=== PATIENT | male | born 1950 | race Caucasian/White ===

== ENCOUNTER 2019-02-22 18:43 | Emergency (ER) | payer OTHER, BC, SELFPAY ==
[2019-02-22 18:45] VITALS: BP 137/85; PULSE 74; RESP 16; TEMP 36.7; O2SAT 96; BMI 31.4
--- NOTE | 2019-02-22 18:55 | ED.RN ---
brian randhawa (distribution operations supervisor) 1st call [phone] 2nd call [phone] 3rd call [phone]
--- NOTE | 2019-02-22 18:58 | ED.DCSUM_ITS ---
History of Present Illness Chief Complaint: Burn Informant: Patient Onset: Days Current Severity: Mild Maximum Severity: Mild Narrative: Patient presents with a burn to his right taylor that he suffered 5 days ago at work. He states a hot part leaned up against his leg. He had a small round burn to the anterior taylor which developed a blister later that night. Blister drained that same day. Area has not been painful. Today he has erythema extending distally from the open the blister. He has had no fever or chills. Past Medical History - Allergies and Home Meds Allergies/Adverse Reactions: Allergies barium iodide Adverse Reaction (Verified 02/22/19 18:49) Nausea/Vom/Diarrhea Primary Care Physician: [facility] Doctor,Out of [Primary Care Provider] - Prior records reviewed: Yes Past Medical History: - - Reviewed Lives: Spouse/ Significant Other Smoking Status: Never smoker Review of Systems General: Denies: Chills, Fever Eyes: Denies: Visual changes - bilaterally ENT: Denies: Bilateral ear pain Cardiovascular: Denies: Chest pain Respiratory: Denies: Dyspnea Gastrointestinal: Denies: Abdominal pain Musculoskeletal: Reports: Arthralgias, Extremity Pain Skin: Reports: Wounds Neurological: Denies: Headache Hematologic: Denies: Easy bruising, Easy bleeding Allergy: Denies: Uticaria Physical Exam Vital Signs/Narrative: Vital Signs Temp Pulse Resp BP Pulse Ox 02/22/19 18:45 98.0 F 74 16 137/85 H 96 Inital Vital Signs reviewed: Yes General: Well nourished, Well developed Head: Normocephalic ENT: Moist mucous membranes Neck: Supple Cardiovascular: Regular rate, Regular rhythm, No murmurs Respiratory: No distress, CTA bilaterally Abdomen: Soft, Nontender Extremities: Edema - 2+ edema bilateral lower extremities. Skin: - - Patient has a 1 x 3 cm fibrinous scab over previous blistered wound. He has an area of erythema and warmth consistent with cellulitis extending around and distal to the initial wound measuring 6 x 11 cm. Neurological: Alert, Oriented x3, Normal Strength, Normal Sensation Psychological: Normal affect Diagnostic/Tx/Re-eval - Medical Decision Making Will be cleansed and dressed. Area of cellulitis will be outlined with surgical marker. Patient be started on Bactrim and Keflex, first doses given here. ED Disposition - Plan for ED Patient: Disposition: Home or Assisted Living Diagnosis: Thermal burn, Cellulitis Instructions: BURN, Thermal, (1'2'3') w/ Dressing, BURN, Infected Prescriptions: Smz/Tmp Ds [Bactrim Ds] 1 tablet PO BID #20 tablet Cephalexin [Keflex] 500 mg PO Q6 #40 capsule Referrals: [facility] [GROUP OF PHYSICIANS] - 3-5 Days
[2019-02-22] MEDS: Smz/Tmp Ds Tablet 1 TABLET PO (19:05)
[2019-02-22] MEDS: Cephalexin 250 MG Capsule 500 MG PO (19:05)
[2019-02-22 19:10] VITALS: TEMP 36.7
[2019-02-22 20:22] VITALS: BP 135/82; PULSE 72; RESP 17; TEMP 36.7; O2SAT 97
== END 2019-02-22 20:23 | disposition home or self-care (01) ==
PROVIDERS: Emergency Provider Emergency Medicine
DX: L03.115 Cellulitis of right lower limb (principal); T24.001A Burn of unspecified degree of unspecified site of right lower limb, except ankle and foot, initial encounter; X19.XXXA Contact with other heat and hot substances, initial encounter; Y93.89 Activity, other specified; Y92.89 Other specified places as the place of occurrence of the external cause; Y99.0 Civilian activity done for income or pay
CPT/HCPCS: 99282

== ENCOUNTER → 2019-08-01 09:45 | Outpatient (CLI) | payer BC, SELFPAY ==
--- NOTE | 2019-08-01 09:49 | CT_ITS ---
STUDY: CT CHEST WITHOUT CONTRAST REASON FOR EXAM: Male, 69 years old. LUNG NODULE RADIATION DOSAGE (If Supplied By Facility): CTDIvol = ( 13.85 ) mGy, DLP = ( 553.77 ) mGycm TECHNIQUE: Transaxial imaging was performed without the administration of intravenous contrast material. Multiplanar coronal and sagittal images were reformatted. Individualized dose optimization techniques were used for this CT. COMPARISON: None. FINDINGS: Small bilateral benign appearing axillary lymph nodes. There is a 5.1 mm noncalcified nodule in the posterior aspect of the right upper lobe abutting the right minor fissure as seen on axial image #51. Adjacent to this, there is a similar appearing nodule measuring 4.4 mm abutting the fissure. This also evidence of a similar appearing 3 mm nodule in the posterior aspect of the right upper lobe abutting the right minor fissure. Mild degree of pleural thickening at the right lung base with the increased markings suggestive of scarring. Focal erosive scarring is seen in the lateral posterior aspect of the right upper lobe. There are calcifications of the coronary arteries. There are multiple small lymph nodes within the mediastinum, which are normal in size and morphology most compatible with reactive lymph hyperplasia. Normal hilar regions. Normal unenhanced pulmonary arteries. Normal aorta arch and descending thoracic aorta. There are multi-level degenerative changes of the thoracic spine. There is no demonstrated abnormality of the visualized upper abdomen. CT/Chest without Contrast IMPRESSION: 3 subcentimeters nodules are seen in the posterior aspect of the right upper lobe as described. These nodules abut the right minor fissure. Mild scarring at the right lung base as well as at the right lung apex. Electronically Signed: Mian Klein, at 11:10 EDT , Service support ,
== END ==
PROVIDERS: PCP Student in an Organized Health Care Education/Training Program; Referring Provider Internal Medicine Pulmonary Disease; Visit Provider Internal Medicine Pulmonary Disease
DX: R91.8 Other nonspecific abnormal finding of lung field (principal)
CPT/HCPCS: 71250

== ENCOUNTER 2019-08-01 10:00 | Day surgery (SDC) | payer BC, SELFPAY ==
[2019-08-01] VITALS (7 sets, daily range): BP systolic 120–132; BP diastolic 76–96; PULSE 65–71; RESP 16; TEMP 36.3–36.6; O2SAT 94–100; BMI 30.2
[2019-08-01] MEDS: Lactated Ringers 1,000 ML 100 ML IV (10:26)
--- NOTE | 2019-08-01 10:52 | PCM.OPRPT ---
Report of Operation Date of Procedure: 08/01/19 Pre-Operative Diagnosis: Right knee arthrofibrosis Post-Operative Diagnosis: Right knee arthrofibrosis Surgery/Procedure Performed:: Manipulation under anesthesia right total knee Description of Surgical Findings:: Pre-manipulation range of motion 25-65 Postmanipulation range of motion 10-105 search optimization analyst: None Type of Anesthesia:: MAC Anesthesiologist: Frank Bradley Special Medications: None Specimen's removed: None Estimated Blood Loss (mL): 0 Fluids Replaced: None Description of Procedure: Brief history operative indications: 69-year-old male who had total knee replacement by my partner 9 weeks ago presented with arthrofibrosis. Manipulation under anesthesia was recommended. Risks and benefits were discussed including fracture, continued stiffness and the risks of anesthesia. Procedure: On the date of procedure patient's right lower extremity is marked in the preoperative area. They were brought back to the operating room where they were left on her gurney. Anesthesia was administered and anesthesia assumed control her C-spine airway and remaining control throughout the main procedure. Once patient was comfortably asleep the preoperative range of motion was measured at 25-65?. Gentle pressure was placed on the knee with the hip in flexion scar tissue was broken up and the knee was flexed 5-1 05?. Patient tolerated the procedure well was awakened by anesthesia and transferred back to recovery. Patient will receive a block in the PACU and will be placed on a Medrol Dosepak to take as directed. Postoperative plan: They gamal start a prednisone Dosepak tomorrow. They will have physical therapy every day for 2 weeks and follow-up in 2 weeks. Montelukast will be written for 6 weeks. - Complications No intraoperative complications - Admit VTE Documentation VTE Present on Admission: No VTE Mechan Device Prophylaxis: None VTE Pharm Prophylaxis ordered?: Yes
== END 2019-08-01 12:40 | disposition home or self-care (01) ==
LOC: SDC 10:01 → AC 10:03
PROVIDERS: PCP Student in an Organized Health Care Education/Training Program; Referring Provider Specialist; Visit Provider Specialist
PROC: (CPT 27570; principal; 2019-08-01 13:10)
DX: M24.661 Ankylosis, right knee (principal); Z86.718 Personal history of other venous thrombosis and embolism; Z79.01 Long term (current) use of anticoagulants; G47.30 Sleep apnea, unspecified; M17.11 Unilateral primary osteoarthritis, right knee; Z96.651 Presence of right artificial knee joint
CPT/HCPCS: 27570; 64447; J7120

== ENCOUNTER → 2019-12-08 07:28 | Outpatient (CLI) | payer MEDICARE, BC, SELFPAY ==
[2019-08-01 10:17] VITALS: BMI 30.2
--- NOTE | 2019-12-08 07:35 | CT_ITS ---
STUDY: CT CHEST WITHOUT CONTRAST REASON FOR EXAM: Male, 69 years old. NODULE F/U, NO OTHER MED HX RADIATION DOSAGE (If Supplied By Facility): CTDIvol = ( 14.15 ) mGy, DLP = ( 572.93 ) mGycm TECHNIQUE: Transaxial imaging was performed without the administration of intravenous contrast material. Multiplanar coronal and sagittal images were reformatted. Individualized dose optimization techniques were used for this CT. COMPARISON: Comparison is made with prior study from 08/01/2019. FINDINGS: Small benign-appearing bilateral axillary lymph nodes. The previously seen subcentimeters nodule seen in the posterior aspect of the right upper lobe abutting the right minor fissure have almost completely resolved. These measures approximately 1 mm at this time. Stable mild scarring at the right base with focal pleural thickening. There is no demonstrated pleural abnormality. There are calcifications of the coronary arteries. There are multiple small lymph nodes within the mediastinum, which are normal in size and morphology most compatible with reactive lymph hyperplasia. The largest is in the precarinal space and measures 2 cm. This is unchanged. Normal hilar regions. Normal unenhanced pulmonary arteries. Normal aorta arch and descending thoracic aorta. There are multi-level degenerative changes of the thoracic spine. There is no demonstrated abnormality of the visualized upper abdomen. CT/Chest without Contrast IMPRESSION: Interval almost complete resolution of the previously seen tiny nodules in the posterior aspect of the right upper lobe abutting the right minor fissure. Electronically Signed: Mian Klein, at 9:33 EDT , Service support ,
== END ==
PROVIDERS: PCP Student in an Organized Health Care Education/Training Program; Referring Provider Internal Medicine Pulmonary Disease; Visit Provider Internal Medicine Pulmonary Disease
DX: R91.1 Solitary pulmonary nodule (principal)
CPT/HCPCS: 71250

== ENCOUNTER → 2020-06-08 06:50 | Outpatient (CLI) | payer MEDICARE, SELFPAY ==
[2019-08-01 10:17] VITALS: BMI 30.2
--- NOTE | 2020-06-08 06:58 | CT_ITS ---
STUDY: CT ABDOMEN AND PELVIS WITH AND WITHOUT CONTRAST REASON FOR EXAM: Male, 69 years old. MICROSCOPIC HEMATURIA, NO HX KS, SKURG-APPY,TERE RADIATION DOSAGE (If Supplied By Facility): CTDIvol = ( 23.96 ) mGy, DLP = ( 3375.21 ) mGycm TECHNIQUE: Transaxial images were obtained from the dome of the diaphragm to the symphysis pubis without oral contrast. IV 100mL Isovue-300 was administered. Sagittal and coronal images were reconstructed. Individualized dose optimization techniques were used for this CT. COMPARISON: None. FINDINGS: Minimal degree of increased markings at the right base suggestive of either atelectasis and/or scarring. The visualized portions of the heart are within normal limits. There is decreased attenuation of the liver consistent with steatosis. There are surgical clips in the gallbladder fossa consistent with a prior cholecystectomy. Normal spleen. Normal pancreas. Normal bilateral adrenal glands. There is a 2.4 cm cyst in the anterior lateral aspect of the right upper pole. There is also evidence of a 1.3 cm hyperdense cyst in the midpole of the right kidney. There is 1.4 cm cyst in the upper pole of the left kidney. 2 small cysts are also seen in the lower pole of the left kidney. There is a small hiatal hernia. Normal small intestine. There are multiple colonic diverticula consistent with diverticulosis. The patient is status post appendectomy. There is diffuse atherosclerotic calcification of the abdominal aorta, without a demonstrated aneurysm. Normal inferior vena cava. There is borderline retroperitoneal lymphadenopathy with enlarged nodes no greater than 10mm in the short axis diameter. Normal urinary bladder. There are prostatic calcifications. Small umbilical hernia containing nondilated bowel. There are bilateral inguinal hernias containing fat more prominent on the right side. There are mild degenerative changes of the visualized lumbar spine. CT/CT Abd/Pelvis W/WO Contrast IMPRESSION: Multiple bilateral renal cysts. Prostatic calcification. Fatty infiltration of the liver. Findings suggestive of atelectasis and/or scarring at the right lung base. Electronically Signed: Mian Klein MD at 8:20 EST , Service support ,
[2020-06-08 07:21] LABS: CREATININE FINGERSTICK 1.3 mg/dL (0.70-1.30)
== END ==
PROVIDERS: PCP Student in an Organized Health Care Education/Training Program; Referring Provider Nurse Practitioner Adult Health; Visit Provider Nurse Practitioner Adult Health
DX: R31.21 Asymptomatic microscopic hematuria (principal)
CPT/HCPCS: 74178; Q9967

== ENCOUNTER 2021-01-08 09:11 | Inpatient (IN) | payer MEDICARE, SELFPAY ==
[2021-01-08] VITALS (10 sets, daily range): BP systolic 98–106; BP diastolic 69–80; PULSE 49–90; RESP 16–18; TEMP 36.7–37.4; O2SAT 94–95; BMI 30.7
--- NOTE | 2021-01-08 09:14 | HP.PCM.HOS_ITS ---
HPI - General General Date of Admission: 01/08/21 Date of Service: 01/08/21 Chief Complaint: Shortness of breath, New A. fib with RVR HPI Narrative JAG TOVAR, is a 70 M who presents from also ED with newly diagnosed COVID-19 infection and A. fib with RVR. Patient stated that he started having fever chills with progressive shortness of breath ongoing for 6 days prior to admission. His had Covid first and he also got it. He has not been vaccinated. He was diagnosed the same day his symptoms started. He went to the emergency department because he was progressively short of breath. On the time of being seen, he stated that he feels improved. He denied any fever or chills or dizziness. [facility] Medical History (Updated 01/08/21 @ 14:[address] Graciela Juarez MD) Cholecystectomy planned Home Medications aspirin 81 mg PO DAILY 01/08/21 [History Last Taken Unknown] Allergy/AdvReac Type Severity Reaction Status Date / Time barium iodide AdvReac Nausea/Vom/ Verified 02/22/19 18:49 Diarrhea Family History (Updated 01/08/21 @ 14:[address] Graciela Juarez MD) Mother Diabetes Father Heart disease Surgical History (Updated 01/08/21 @ 14:[address] Graciela Juarez MD) H/O hernia repair H/O total knee replacement History of appendectomy Social History (Updated 01/08/21 @ 14:[address] Graciela Juarez MD) household members: spouse current gender identity: male Smoking Status: Never smoker alcohol intake: current alcohol intake frequency: holidays/special occasions only substance use type: does not use ROS ROS Narrative Constitutional: Reports: Malaise, Weakness, Fatigue, Chills, Fever,. Denies: Anorexia, Night Sweats, Weight Change Eyes: Denies: Blurred vision, Cataracts, Conjunctivae Inflammation, Pain, Redness, Vision Change HEENT: Denies: Difficulty Hearing, Difficulty Swallowing, Head Aches, Hearing Changes, Sinus Congestion, Sinus Drainage Cardiovascular: Denies: Chest Pain, Orthopnea, Palpitations Respiratory:Admits to: Cough, Shortness of breath at rest, Denies:Sputum production Gastrointestinal: Denies: Abdominal Pain, Nausea, Vomiting Genitourinary: Denies: Dysuria Musculoskeletal: Denies: Joint Pain, Joint stiffness, Joint swelling, Joint Tenderness Skin: Denies: Rash, Wounds Neurological: Denies: Numbness, Tingling, Focal weakness Vital Signs Vital Signs Vital Signs: Blood pressure is 104/76, pulse rate 60, pulse ox 94, temperature 98.4 F, on 1 L of oxygen Physical Exam Narrative Physical exam: General: Alert, Oriented x3, Cooperative, No apparent distress, Well developed, on oxygen HEENT: Atraumatic Oral: Moist Mucosa Neck: Supple Lungs: Diminished Cardiovascular: HS I+II, regular, no murmurs Abdomen: Bowel Sounds Present, Soft, Non Tender Extremities: No edema Results 1. Acute hypoxic insufficiency secondary to acute COVID-19 pneumonia Patient presents from [place] ED on 2 L of oxygen Diagnosed 6 days ago. Started on remdesivir in [place] ED-got 1st dose Will continue on Decadron, remdesivir, breathing treatments, 2. Newly diagnosed A. fib, rate controlled, no history of A. fib, rate controlled Likely secondary to #1 Will continue on Lovenox, will hold off on beta-john on account of relative hypotension 3. DVT prophylaxis?on Lovenox therapeutic dosing I discussed and explained in details the various types of CODE STATUS-full code, DNR CCA, DNR CC. Patient chose to be full code Time spent discussing CODE STATUS 17 minutes Charges/Coding Visit Charges Inpatient E&M: 36577 Init Hosp L3 Procedures Hospitalists Procedures: 53746 Advncd Care Plan 30 Min
--- NOTE | 2021-01-08 10:30 | CASEMGMT ---
RN JOSEFINA called patient in room for initial transition planning/care coordination assessment. TONYA ROCHA introduced self and role at [facility]. Patient is alert and oriented. Patient willing to participate in assessment and is able to answer all questions appropriately. Care providers, pharmacy, and demographics verified. Patient wishes to discharge home, denies need for home health at this time, will monitor for home oxygen. Patient states he has no further needs or concerns at this time. CM to follow for discharge planning needs that may arise. PCP: Emily Specialists: none Preferred Pharmacy: [facility] Insurance: [employer] [facility] Prescription Benefit: yes Living Will/HPOA: yes, daughter Tiburcio Hampton LNOK: , daughter Living Arrangements: Patient lives with in a single story home wiht 2 steps to enter. Patient states he is independent at home. is sick with covid as well and hospitalized at [facility]. Transportation: self. DME/HHC: Patient states he has shower chair, cane, walker, wheelchair, grab bars, and cpap at home. Patient denies previous HHC. No preference for DME and agreeable to [employer] after review list. Patient had covid testing done at [facility]. Disposition Plan: Patient to discharge home with family support and follow-up plans in place. Monitor for home oxygen. Suzan GARCIA, RN, CM
--- NOTE | 2021-01-08 11:10 | PCS.PANDOC ---
PANDEMIC DOCUMENTATION INITIATED: Date: 12/20/2020 Time: 190
[2021-01-08] MEDS: Enoxaparin 120 MG/0.8 ML Syringe 110 MG SC ×2 (12:01→16:42)
[2021-01-08 13:37] LABS: BNP,B-Type NATRIURETIC PEPTIDE 379.6 pg/mL (0-100)
[2021-01-09] VITALS (9 sets, daily range): BP systolic 94–104; BP diastolic 68–71; PULSE 38–90; RESP 16–18; TEMP 36.5–37.4; O2SAT 93–96
--- NOTE | 2021-01-09 03:36 | EKG12_ITS ---
Test Reason : BRADYCARDIA Blood Pressure : / mmHG Vent. Rate : 043 BPM Atrial Rate : 038 BPM P-R Int : 000 ms QRS Dur : 078 ms QT Int : 452 ms P-R-T Axes : 000 -06 011 degrees QTc Int : 381 ms Atrial fibrillation Abnormal ECG Confirmed by KYRA LIRIANO, DARIAN ([id number]), manuscript editor ALEKSANDR HUGHES ([id number]) on 01/12/2021 9:32:51 AM Referred By: LIEN Confirmed By:DARIAN RAE MD
[2021-01-09] MEDS: Enoxaparin 120 MG/0.8 ML Syringe 110 MG SC ×2 (07:01→15:35)
[2021-01-09 07:37] LABS: Absolute Lymphocyte Count 2.54 X10^3/uL (0.83-4.51); Absolute Neutrophil Count 4.3 X10^3/uL (2.0-7.7); Basophil# 0.02 X10^3/uL; Basophil% 0.3 % (0-1); Eosinophil# 0.01 X10^3/uL; Eosinophils% 0.1 % (0-5); Hematocrit 45.2 % (40-54); Lymphocyte # 2.54 X10^3/ul (0.83-4.51); Lymphocyte % 32.9 % (19-41); Mean Corp Hgb Conc 33.2 g/dL (32-36); Mean Corpuscular Hgb 28.5 pg (27.0-32.0); Mean Corpuscular Volume 85.8 fL (80-94); Mean Platelet Vol. 11.4 fl (6.2-12.0); Monocyte# 0.86 X10^3/uL; Monocyte% 11.1 % (0-10); NRBC Flagged by Analyzer 0 % (0-5); Neutrophil # 4.26 X10^3/uL (2.7-7.7); Neutrophil % 55.1 % (47-70); Platelet Count 187 K/mm3 (150-450); RBC Distribution Width CV 13.1 % (11.6-14.6); RBC Distribution Width SD 40.9 fl (35.1-43.9); Red Blood Count 5.27 M/mm3 (4.6-6.2); White Blood Count 7.7 K/mm3 (4.4-11.0)
[2021-01-09 08:03] LABS: ALB/GLOB Ratio 0.6 RATIO (0.9-2.4); AST(SGOT) 31 U/L (15-37); Alanine Aminotransfer ALT/SGPT 39 U/L (16-61); Albumin, Serum 2.5 g/dL (3.2-5.0); Alkaline Phosphatase 56 U/L (45-117); Anion Gap 4 (5-15); BUN 21 mg/dL (7-18); BUN/Creat Ratio 21.1 RATIO (10-20); Calcium,Total 8.4 mg/dL (8.5-10.1); Chloride 107 mmol/L (98-107); EST Glomerular Filtration Rate 79 mL/min (>60); Est Glom Filt Rate - Afr Amer 96 mL/min (>60); Globulin 3.9 g/dL (2.2-4.2); Glucose 109 mg/dL (74-106); Magnesium 2.2 mg/dL (1.6-2.6); Potassium 3.7 mmol/L (3.5-5.1); Protein, Total 6.4 g/dL (6.4-8.2); Sodium Level 138 mmol/L (136-145)
[2021-01-09] MEDS: dexAMETHasone 4 MG Tablet 6 MG PO (09:48)
--- NOTE | 2021-01-09 15:02 | CON.PCM.CA_ITS ---
Assessment & Plan Assessment/Plan (1) Atrial fibrillation: QUALIFIERS: Atrial fibrillation type: unspecified Qualified Code(s): I48.91 - Unspecified atrial fibrillation PLAN: Patient's heart rate is controlled. No episodes of persistent symptomatic bradycardia that would require pacemaker placement. 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 No AV mal blocking or antiarrhythmic medications required at this time. HPI Consult Data Date of Consult: 01/09/21 HPI Narrative Reason for Consultation: Atrial fibrillation HPI Narrative: 70-year-old male admitted with Covid and hypoxemia. We were cons ulted for atrial fibrillation. Patient was not seen personally by me. Cardiology consult was provided based on EKG, telemetry findings, review of chart and discussion with Dr. Juarez. Telemetry reveals some episodes of prolonged R-R interval up to 2.8 seconds but no persistent bradycardia. Underlying rhythm is atrial fibrillation [facility] Medical History (Updated 01/09/21 @ 15:[address] Isaías Sharma MD) Cholecystectomy planned Home Medications apixaban [Eliquis] 5 mg PO BID 30 Days #60 tab 01/09/21 [Rx Last Taken Unknown] dexamethasone 6 mg PO DAILY 8 Days #12 tab 01/09/21 [Rx Last Taken Unknown] Allergy/AdvReac Type Severity Reaction Status Date / Time barium iodide AdvReac Nausea/Vom/ Verified 02/22/19 18:49 Diarrhea Family History (Updated 01/08/21 @ 14:[address] Graciela Juarez MD) Mother Diabetes Father Heart disease Surgical History (Updated 01/08/21 @ 14:[address] Graciela Juarez MD) H/O hernia repair H/O total knee replacement History of appendectomy Social History (Updated 01/08/21 @ 14:[address] Graciela Juarez MD) household members: spouse current gender identity: male Smoking Status: Never smoker alcohol intake: current alcohol intake frequency: holidays/special occasions only substance use type: does not use Objective Data Vital Signs: Vital Signs Temp Pulse Resp BP Pulse Ox 99.4 F H 69 18 100/68 95 01/09/21 13:17 01/09/21 13:17 01/09/21 13:17 01/09/21 13:17 01/09/21 14:11 Oxygen Flow Rate (L/min) 93 Oxygen Delivery Method Room Air Weight: 246 lb Body Mass Index (BMI) 30.7 Intake & Output: Intake and Output for Last 24 Hours 01/07/21 01/08/21 01/09/21 23:59 23:59 23:59 Intake Total 900 / 900 650 / 650 Balance 900 / 900 650 / 650 Lab / Micro Data Result Diagrams: 01/09/21 07:21 01/09/21 07:21 Labs: Laboratory Results - last 24 hr 01/08/21 12:55: D-Dimer Quant (PE/DVT) 2.30 H* 01/09/21 07:21: WBC 7.7, RBC 5.27, Hgb 15.0, Hct 45.2, MCV 85.8, MCH 28.5, MCHC 33.2, RDW Std Deviation 40.9, RDW Coeff of Heidy 13.1, Plt Count 187, MPV 11.4, Immature Gran % (Auto) 0.500, Neut % (Auto) 55.1, Lymph % (Auto) 32.9, [place] % (Auto) 11.1 H, Eos % (Auto) 0.1, Baso % (Auto) 0.3, Absolute Neuts (auto) 4.3, Absolute Lymphs (auto) 2.54, Nucleated RBC % 0 01/09/21 07:21: Sodium 138, Potassium 3.7, Chloride 107, Carbon Dioxide 27.0, Anion Gap 4 L, BUN 21 H, Creatinine 1.00, Estim Creat Clear Calc 84.50, Est GFR (MDRD) Af Amer 96, Est GFR (MDRD) Non-Af 79, BUN/Creatinine Ratio 21.1 H, Glucos e 109 H, Calcium 8.4 L, Magnesium 2.2, Total Bilirubin 0.80, AST 31, ALT 39, Alkaline Phosphatase 56, Total Protein 6.4, Albumin 2.5 L, Globulin 3.9, Albumin/Globulin Ratio 0.6 L Micro: Microbiology 01/08/21 13:29 Mucosa - Nasopharyngeal Respiratory Panel (PCR) - Final 01/08/21 16:45 Urine, Clean Catch Legionella Antigen - Final 01/08/21 16:45 Urine, Clean Catch Streptococcus pneumoniae Antigen (M - Final Cardiology Labs/Tests 01/08/21 12:55: D-Dimer Quant (PE/DVT) 2.30 H* 01/09/21 07:21: WBC 7.7, RBC 5.27, Hgb 15.0, Hct 45.2, MCV 85.8, MCH 28.5, MCHC 33.2, Plt Count 187, MPV 11.4, Immature Gran % (Auto) 0.500, Neut % (Auto) 55.1, Lymph % (Auto) 32.9, [place] % (Auto) 11.1 H, Eos % (Auto) 0.1, Baso % (Auto) 0.3, Absolute Neuts (auto) 4.3, Nucleated RBC % 0 01/09/21 07:21: Sodium 138, Potassium 3.7, Chloride 107, Carbon Dioxide 27.0, Anion Gap 4 L, BUN 21 H, Creatinine 1.00, Est GFR (MDRD) Af Amer 96, Est GFR (MDRD) Non-Af 79, BUN/Creatinine Ratio 21.1 H, Glucose 109 H, Calcium 8.4 L, Magnesium 2.2, Total Bilirubin 0.80 Rhythm: EKG: ECHO: Stress Test: Cardiac Cath: PCI: CT Surgery: Holter monitor: EPS: PPM: CXR: Chest CT Scan:
--- NOTE | 2021-01-09 15:07 | PCM.DC.SUM ---
Providers Date of Admission: 01/08/21 Date of Discharge: 01/09/21 Primary Care Physician: Dr. Justin Diaz, Consultations 01/09/21 06:59 Consult: Cardiology Routine Consulting Provider: Isaías Sharma Reason for Consult: bradycardia, new a fib EMERGENT Consult: Yes MD Notified: Yes Date Notified: 01/09/21 Time Notified: 06:59 Method of Notification: Text Reason For Visit: AFIB Diagnosis Discharge Diagnosis (1) Atrial fibrillation: Status: Acute Code(s): I48.91 - Unspecified atrial fibrillation Qualifiers: Atrial fibrillation type: unspecified Qualified Code(s): I48.91 - Unspecified atrial fibrillation (2) COVID-19: Status: Acute Code(s): U07.1 - COVID-19 (3) Hypoxia: Status: Resolved Code(s): R09.02 - Hypoxemia Medications at Discharge Home Medications albuterol sulfate 2 puff INHALATION Q6H PRN 30 Days #8.5 g 01/09/21 apixaban [Eliquis] 5 mg PO BID 30 Days #60 tab 01/09/21 dexamethasone 6 mg PO DAILY 8 Days #12 tab 01/09/21 Hospital Course Operations None Procedures None Summary of Care Provided Minutes Spent on Discharge: 45 Hospital Course: 70-year-old male with past medical history of DVTs, who was transferred from [facility] [place] [facility] with hypoxia from COVID-19 pneumonia and newly diagnosed A. fib. Patient was transferred here for cardiology evaluation. On arrival, his vitals were stable. He remained in A. fib. He was started on Decadron, remdesivir and Lovenox. He has not been vaccinated. His symptoms started 6 days prior to arrival. Patient also started on 70 spirometer. He continued to improve and was off oxygen at discharge. Overnight, he had episodes of bradycardia with dips in the 20s on telemetry. Patient denied any symptoms. Patient was evaluated by cardiology, recommended to follow-up cardiology in the outpatient. His [id number] score was more than 3, he was discharged on Eliquis. Physical Exam Narrative Physical exam: General: Alert, Oriented x3, Cooperative, No apparent distress, Well developed HEENT: Atraumatic Oral: Moist Mucosa Neck: Supple Lungs: Diminished Cardiovascular: HS I+II, regular, no murmurs Abdomen: Bowel Sounds Present, Soft, Non Tender Extremities: No edema Weight / BMI Weight Weight: 111.584 kg Body Mass Index (BMI) 30.7 ABG / Lab / Microbiology Data Result Diagrams: 01/09/21 07:21 01/09/21 07:21 Laboratory: Laboratory Results - last 24 hr 01/08/21 12:55: D-Dimer Quant (PE/DVT) 2.30 H* 01/09/21 07:21: WBC 7.7, RBC 5.27, Hgb 15.0, Hct 45.2, MCV 85.8, MCH 28.5, MCHC 33.2, RDW Std Deviation 40.9, RDW Coeff of Heidy 13.1, Plt Count 187, MPV 11.4, Immature Gran % (Auto) 0.500, Neut % (Auto) 55.1, Lymph % (Auto) 32.9, [place] % (Auto) 11.1 H, Eos % (Auto) 0.1, Baso % (Auto) 0.3, Absolute Neuts (auto) 4.3, Absolute Lymphs (auto) 2.54, Nucleated RBC % 0 01/09/21 07:21: Sodium 138, Potassium 3.7, Chloride 107, Carbon Dioxide 27.0, Anion Gap 4 L, BUN 21 H, Creatinine 1.00, Estim Creat Clear Calc 84.50, Est GFR (MDRD) Af Amer 96, Est GFR (MDRD) Non-Af 79, BUN/Creatinine Ratio 21.1 H, Glucose 109 H, Calcium 8.4 L, Magnesium 2.2, Total Bilirubin 0.80, AST 31, ALT 39, Alkaline Phosphatase 56, Total Protein 6.4, Albumin 2.5 L, Globulin 3.9, Albumin/Globulin Ratio 0.6 L Microbiology: Microbiology 01/08/21 13:29 Mucosa - Nasopharyngeal Respiratory Panel (PCR) - Final 01/08/21 16:45 Urine, Clean Catch Legionella Antigen - Final 01/08/21 16:45 Urine, Clean Catch Streptococcus pneumoniae Antigen (M - Final D/C Instructions Discharge Diet: 2000 mg Sodium Diet Weight Bearing Status: Weight bearing as tolerated Meaningful Use Info Meaningful Use Diagnoses (Choose all that apply): None applicable Discharge Plan Admission Admit Date/Time: 01/08/21 09:11 Primary Reason for Your Visit: Acute COVID-19 infection Attending Provider: Graciela Juarez Primary Care Provider: Justin Diaz Consulting Providers: Isaías Sharma Instructions Additional Instructions / Restrictions: Continue to use your incentive spirometer. Continue to remain active and eat healthy. Let your doctor know if you develop fever >101.3F or have progressive worsening shortness of breath. Follow-up with your primary care doctor. Complete your Decadron as prescribed. Continue to use your inhaler as needed for shortness of breath. Continue to quarantine for 20 days total from the start of your symptoms. You are strongly recommended to get vaccinated after your quarantine. Discharge Orders/Prescriptions Prescriptions: New dexamethasone 4 mg Tablet 6 mg PO DAILY 8 Days Qty: 12 RF: 0 Eliquis 5 mg tablet 5 mg PO BID 30 Days Qty: 60 RF: 0 albuterol sulfate 90 mcg/actuation HFA aerosol inhaler 2 puff inhalation Q6H PRN (Reason: shortness of breath or wheezing) 30 Days Qty: 8.5 RF: 0 Discontinued aspirin 81 mg Tablet 81 mg PO DAILY RF: 0 Referrals / Follow Up: Justin Diaz DO [Primary Care Provider] - Within 2 Weeks Isaías Sharma MD [STAFF PHYSICIAN] - Within 2 Weeks Disposition Disposition (needs filled in before D/C Order can be placed): Home, Self Care Charges/Coding Visit Charges Inpatient E&M: 16650 Disch Hosp
== END 2021-01-09 16:31 | disposition home or self-care (01) | DRG 177 ==
PROVIDERS: Admitting Provider Internal Medicine; PCP Student in an Organized Health Care Education/Training Program; Visit Provider Internal Medicine
DX: U07.1 COVID-19 (principal); J12.82 Pneumonia due to coronavirus disease 2019; I48.91 Unspecified atrial fibrillation; R09.02 Hypoxemia; Z86.718 Personal history of other venous thrombosis and embolism; Z79.82 Long term (current) use of aspirin
CPT/HCPCS: 36415; 80048; 80053; 83735; 83880; 85025; 85379; 87449; 87633; 93005; 99251; J7050; G0463

== ENCOUNTER → 2022-07-17 | Outpatient (CLI) | payer MEDICARE, SELFPAY ==
--- NOTE | 2022-07-17 10:30 | PROSBIL_PTH ---
PATIENT: JAG TOVAR LOC: [facility] U#:[id number] AGE/SX: 71/M ROOM: RE07/17/[address]: Dr. Juan Ramon Colin MD : 1950 BED: DIS: 07/17/2022 SPEC #: [id number] RECD: 07/18/22 08:53 STATUS: SERAFIN REQ #: [id number] PRADEEP: 07/17/22 10:[address]: Juan Ramon Colin DEPT: SURGICAL PATHOLOGY RECD BY: Manjula Enciso ENTERED: 07/18/22 08:53 SP TYPE: PROST BX [place] DR: Dr. Justin Diaz DO Tissues: A - PROSTATE RIGHT B - PROSTATE RIGHT C - PROSTATE RIGHT D - PROSTATE LEFT E - PROSTATE LEFT F - PROSTATE LEFT Procedures: PROSTATE BX HEADER OPERATION: Prostate biopsy PRE-OP DIAGNOSIS: Elevated PSA R97.20 TISSUE SUBMITTED: A - Right apex, B - Right mid, C - Right base, D - Left apex, E - Left mid, F - Left base MICROSCOPIC DIAGNOSIS A. Right prostate, apex, core biopsy: Focal high-grade prostatic intraepithelial neoplasia (HGPIN). B. Right prostate, mid, core biopsy: Focal high-grade prostatic intraepithelial neoplasia (HGPIN). C. Right prostate, base, core biopsy: Focal high-grade prostatic intraepithelial neoplasia (HGPIN). D. Left prostate, apex, core biopsy: Prostatic tissue, negative for malignancy. E. Left prostate, mid, core biopsy: Prostatic tissue, negative for malignancy. F. Left prostate, base, core biopsy: Prostatic tissue, negative for malignancy. SJ:everardo 07/19/2022 MICROSCOPIC DESCRIPTION Slides are reviewed. GROSS DESCRIPTION A - Received is one container designated prostate, right apex. The specimen consists of two elongated fragments of light rooney-white soft tissue each measuring 1.2 cm in length and 0.1 cm in diameter. The specimen is totally submitted in one cassette. B - Received is one container designated prostate, right mid. The specimen consists of two elongated fragments of light rooney-white soft tissue each measuring 1.5 cm in length and 0.1 cm in diameter. The specimen is totally submitted in one cassette. C - Received is one container designated prostate, right base. The specimen consists of two elongated fragments of light rooney-white soft tissue measuring 1.2 and 1.5 cm in length and 0.1 cm in diameter. The specimen is totally submitted in one cassette. D - Received is one container designated prostate, left apex. The specimen consists of two elongated fragments of light rooney-white soft tissue each measuring 1.7 cm in length and 0.1 cm in diameter. The specimen is totally submitted in one cassette. E - Received is one container designated prostate, left mid. The specimen consists of two elongated fragments of light rooney-white soft tissue measuring 1.0 and 1.5 cm in length and 0.1 cm in diameter. The specimen is totally submitted in one cassette. F - Received is one container designated prostate, left base. The specimen consists of two elongated fragments of light rooney-white soft tissue measuring 1.2 and 1.5 cm in length and 0.1 cm in diameter. The specimen is totally submitted in one cassette. / SJ:rg 07/18/2022 TC:5 CPT: G0146
== END | disposition home or self-care (01) ==
PROVIDERS: PCP Student in an Organized Health Care Education/Training Program; Visit Provider Urology
DX: R97.20 Elevated prostate specific antigen [PSA] (principal)
CPT/HCPCS: 88305; G0416

== ENCOUNTER 2022-09-04 07:38 | Day surgery (SDC) | payer MEDICARE, SELFPAY ==
[2022-09-04] MEDS: Lactated Ringers 1,000 ML 15 ML IV (08:32)
[2022-09-04 08:33] VITALS: BP 130/95; PULSE 62; RESP 17; TEMP 36.2; O2SAT 96; BMI 34.2
[2022-09-04 08:33] LABS: Hematocrit 47.8 % (40-54); Hemoglobin 15.6 g/dL (13.0-16.5); Mean Corp Hgb Conc 32.6 g/dL (32-36); Mean Corpuscular Hgb 28.2 pg (27.0-32.0); Mean Corpuscular Volume 86.3 fL (80-94); Mean Platelet Vol. 11.3 fl (6.2-12.0); Platelet Count 244 K/mm3 (150-450); RBC Distribution Width SD 40.4 fl (35.1-43.9); Red Blood Count 5.54 M/mm3 (4.6-6.2); White Blood Count 8.7 K/mm3 (4.4-11.0)
--- NOTE | 2022-09-04 08:47 | PCM.DC.SUM ---
Providers Primary Care Physician: Dr. Justin Diaz DO Reason For Visit: RIGHT MYRINGOTOMY TUBES Medications at Discharge Home Medications albuterol sulfate 90 mcg/actuation aerosol inhaler 2 puff inhalation Q6H PRN shortness of breath or wheezing #8.5 grams 01/10/21 apixaban 5 mg tablet (Eliquis) 5 mg PO BID #60 tabs 01/10/21 ascorbic acid (vitamin C) 500 mg tablet (Vitamin C) 500 mg PO DAILY 08/28/22 fluticasone propionate 50 mcg/actuation nasal spray,suspension 2 spray intranasal DAILY 08/28/22 vitamin E 200 unit tablet 180 mg PO DAILY 08/28/22 zinc 50 mg capsule 50 mg PO DAILY 08/28/22 Weight / BMI Weight Weight: 121.2 kg Body Mass Index (BMI) 34.2 ABG / Lab / Microbiology Data Result Diagrams: 09/04/22 08:25 09/04/22 08:25 Laboratory: Laboratory Results - last 24 hr 09/04/22 08:25: WBC 8.7, RBC 5.54, Hgb 15.6, Hct 47.8, MCV 86.3, MCH 28.2, MCHC 32.6, RDW Std Deviation 40.4, RDW Coeff of [place] 13.0, Plt Count 244, MPV 11.3 D/C Instructions Discharge Diet: No restrictions Discharge Activity: Return to Normal Activity Additional Dressing/Incision Instructions: Ear drops.....5 drops right ear every 12 hours for 3 doses. Start tonight. Please Follow Up With: Duke Lepe MD When: 2-3 weeks Meaningful Use Info Meaningful Use Diagnoses (Choose all that apply): None applicable Discharge Plan Admission Attending Provider: Duke Lepe Primary Care Provider: Justin Diaz Discharge Orders/Prescriptions Prescriptions: No Action Eliquis 5 mg tablet 5 mg PO BID Qty: 60 0RF albuterol sulfate 90 mcg/actuation HFA aerosol inhaler 2 puff inhalation Q6H PRN (Reason: shortness of breath or wheezing) Qty: 8.5 0RF ascorbic acid (vitamin C) [Vitamin C] 500 mg Tablet 500 mg PO DAILY fluticasone propionate 50 mcg/actuation spray,suspension 2 spray INTRANASAL DAILY Label Comments: SPRAY 2 SPRAYS INTRANASALLY ONCE A DAY vitamin E 200 unit Tablet 180 mg PO DAILY zinc 50 mg Capsule 50 mg PO DAILY Referrals / Follow Up: Justin Diaz DO [Primary Care Provider] - Disposition Disposition (needs filled in before D/C Order can be placed): Home, Self Care
[2022-09-04 08:50] LABS: Anion Gap 3 (5-15); BUN 14 mg/dL (7-18); BUN/Creat Ratio 11.8 RATIO (10-20); Calcium,Total 9.2 mg/dL (8.5-10.1); Chloride 107 mmol/L (98-107); Creatinine, Serum 1.19 mg/dL (0.70-1.30); EST Glomerular Filtration Rate 64 mL/min (>60); Est Glom Filt Rate - Afr Amer 78 mL/min (>60); Estimated Creatinine Clearance 67.16 ml/min; Glucose 100 mg/dL (74-106); Sodium Level 137 mmol/L (136-145)
--- NOTE | 2022-09-04 10:08 | PCM.OPRPT ---
Report of Operation Date of Procedure: 09/04/22 Pre-Operative Diagnosis: right chronic serous otitis media Post-Operative Diagnosis: same Surgery/Procedure Performed:: right myringotomy with tube Surgeon: Duke Lepe Type of Anesthesia: General Anesthesiologist: Dani Olguin Estimated Blood Loss (mL): minimal Description of Procedure: The patient was taken to the operating room on 09/04/2022. The patient was placed in the supine position on the operating room table. The patient was given sufficient general anesthesia. The operating microscope was used throughout the entire case. A speculum was inserted into the patient's right ear. Cerumen was removed using a curette. An incision was placed in the anterior inferior quadrant of the tympanic membrane. Fluid was suctioned out of the middle ear space using a #3 suction. A T tube was placed without difficulty. Antibiotic drops were instilled into the patient's ear. The patient was then awoken. He was brought to the recovery room in stable condition. Blood loss minimal replacement none sponge needle and instrument counts correct at the end of the procedure.
[2022-09-04] MEDS: Ciprofloxacin 0.3% 2.5ml Bottle 1 DRP (10:12)
[2022-09-04 10:23] VITALS: BP 130/95; BP 136/98; PULSE 64; RESP 18; TEMP 37.3; O2SAT 97
[2022-09-04 10:29] VITALS: BP 130/95; BP 135/86; PULSE 63; RESP 18; O2SAT 97
[2022-09-04 10:42] VITALS: BP 130/95; BP 136/98; PULSE 61; RESP 18; TEMP 36.4; O2SAT 98
[2022-09-04 11:06] VITALS: BP 130/95
== END 2022-09-04 11:10 | disposition home or self-care (01) ==
LOC: SDC 07:40 → AC 08:13
PROVIDERS: PCP Student in an Organized Health Care Education/Training Program; Referring Provider Otolaryngology; Visit Provider Otolaryngology
PROC: (CPT 69436; principal; 2022-09-04 09:25)
DX: H65.21 Chronic serous otitis media, right ear (principal); I48.91 Unspecified atrial fibrillation; G47.30 Sleep apnea, unspecified; Z86.718 Personal history of other venous thrombosis and embolism; Z86.711 Personal history of pulmonary embolism; Z79.01 Long term (current) use of anticoagulants; Z79.899 Other long term (current) drug therapy; Z86.16 Personal history of COVID-19
CPT/HCPCS: 69436; 00126; 80048; 85027; 93005; J7120

== ENCOUNTER → 2023-07-19 | Outpatient (CLI) | payer MEDICARE, SELFPAY ==
--- NOTE | 2023-07-19 09:11 | RAD_ITS ---
INDICATION: LUNG NODULE/COUGH EXAMINATION/TECHNIQUE: X-RAY - XR Chest 2 Views COMPARISON: CT examinations of 12/08/2019, 08/01/2019. FINDINGS: LIFE-SUPPORT AND LINES: 1. None HEART AND VESSELS: The cardiac silhouette, pulmonary vasculature have normal appearance. No evidence of congestive failure. LUNGS AND PLEURAL SPACES: Mild interstitial prominence at the RIGHT lung base without consolidation. Areas of pleural thickening noted at the RIGHT apex. No distinct pulmonary nodules identified on plain film exam. No pulmonary mass is noted. MEDIASTINUM AND HILAR REGIONS: No masses adenopathy noted. No areas of calcification. Visualized upper airway is normal in position. BONY ELEMENTS: No acute bony changes noted. RAD/Chest PA and Lateral IMPRESSION: 1. Interstitial prominence at the RIGHT lung base, infiltrate versus atelectasis are considerations. 2. No evidence of congestive failure, consolidation or effusion. Electronically Signed: Colton Wright MD at 17:06 EDT ,
== END | disposition home or self-care (01) ==
LOC: RAD 09:04
PROVIDERS: PCP Student in an Organized Health Care Education/Training Program; Referring Provider Internal Medicine Pulmonary Disease; Visit Provider Internal Medicine Pulmonary Disease
DX: R05.9 Cough, unspecified (principal); R91.8 Other nonspecific abnormal finding of lung field
CPT/HCPCS: 71046

== ENCOUNTER → 2024-02-18 | Outpatient (CLI) | payer MEDICARE, SELFPAY ==
[2024-02-18 12:22] LABS: PSA,Total- Diagnostic 2.12 ng/mL (0.0-4.0)
== END | disposition home or self-care (01) ==
LOC: LAB 11:06
PROVIDERS: PCP Student in an Organized Health Care Education/Training Program; Referring Provider Nurse Practitioner; Visit Provider Nurse Practitioner
DX: R97.20 Elevated prostate specific antigen [PSA] (principal)
CPT/HCPCS: 36415; 84153

== ENCOUNTER → 2025-02-26 | Outpatient (CLI) | payer MEDICARE, SELFPAY ==
[2025-02-26 11:02] LABS: PSA,Total- Diagnostic 2.57 ng/mL (0.00-4.00)
== END | disposition home or self-care (01) ==
LOC: LAB 09:44
PROVIDERS: PCP Student in an Organized Health Care Education/Training Program; Referring Provider Urology; Visit Provider Urology
DX: R97.20 Elevated prostate specific antigen [PSA] (principal)
CPT/HCPCS: 36415; 84153

== ENCOUNTER → 2025-04-01 | Outpatient (CLI) | payer MEDICARE, SELFPAY ==
[2025-04-01 10:36] LABS: Hematocrit 44.7 % (40-54); Hemoglobin 15.0 g/dL (13.0-16.5); Immature Granulocytes Count 0.030 X10^3/uL (0.0-0.0); Mean Corp Hgb Conc 33.6 g/dL (32-36); Mean Corpuscular Volume 85.6 fL (80-94); Mean Platelet Vol. 11.6 fl (6.2-12.0); NRBC Flagged by Analyzer 0 % (0-5); Platelet Count 240 K/mm3 (150-450); RBC Distribution Width CV 12.6 % (11.6-14.6); RBC Distribution Width SD 39.4 fl (35.1-43.9); Red Blood Count 5.22 M/mm3 (4.6-6.2); White Blood Count 9.9 K/mm3 (4.4-11.0)
[2025-04-01 11:42] LABS: Anion Gap 10 (5-15); BUN 11 mg/dL (4-19); BUN/Creat Ratio 10.1 RATIO (10-20); Calcium,Total 9.7 mg/dL (7.6-11.0); Carbon Dioxide 28.0 mmol/L (21.0-32.0); Chloride 103 mmol/L (98-108); Glucose 91 mg/dL (70-99); Potassium 4.6 mmol/L (3.3-5.1)
== END | disposition home or self-care (01) ==
LOC: LAB 09:39
PROVIDERS: PCP Student in an Organized Health Care Education/Training Program; Referring Provider Otolaryngology; Visit Provider Otolaryngology
DX: Z01.818 Encounter for other preprocedural examination (principal)
CPT/HCPCS: 36415; 80048; 85025

== ENCOUNTER 2025-04-06 07:47 | Day surgery (SDC) | payer MEDICARE, SELFPAY ==
--- NOTE | 2025-03-31 12:31 | PAT.ANESEVAL ---
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 When Was Last Pacemaker Check QUESTION #4 FULL TEXT: You/Your Family Experience fever (hyperthermia) with Anesthesia Last Oral Intake Last Oral intake: Last Oral Intake NPO since Meds taken in AM with sips of water? 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 Female No 03/31/25 11:06 HX of Motion Sickness Yes 03/31/25 11:06 HX of N/V After Surgery No 03/31/25 11:06 Non-Smoker Yes 03/31/25 11:06 Duration of Surgery greater No 03/31/25 11:06 than 60 minutes Number of Risk Factors 2 03/31/25 11:06 PONV Score Moderate Risk 03/31/25 11:06 Height & Weight Height & Weight: Anesthesia: Height & Weight Height 6 ft 2 in 09/04/22 08:33 Respiratory Assessment Respiratory Assessment - recycling or rubbish collector: Respiratory Tract Infection Hx - recycling or rubbish collector Hx Respiratory Tract Infection No 03/31/25 11:06 STOP Sleep Apnea STOP Sleep Apnea - recycling or rubbish collector: STOP Sleep Apnea - recycling or rubbish collector Hx Hypertension No 03/31/25 11:06 Hx Sleep Apnea Yes 03/31/25 11:06 CPAP Yes 03/31/25 11:06 BIPAP No 03/31/25 11:06 Do you snore loudly (louder No 03/31/25 11:06 than talking or can be heard Do you often feel tired/ No 03/31/25 11:06 fatigued/ sleepy during daytime? Has anyone observed you stop No 03/31/25 11:06 breathing during sleep? STOP Results Positive 03/31/25 11:06 QUESTION #5 FULL TEXT : Do you snore loudly (louder than talking or can be heard through closed doors)? 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 Specify any problems Hx of Preganancy in last 3 N/A 03/31/25 11:06 Months Nurse Filling Out Transfusion [id number] 03/31/25 11:06 & Questions: Date: 03/31/25 03/31/25 11:06 Time: 11:11 03/31/25 11:06 Patient unable to answer at this time (ie. confused, unrespo /Reproduction History /Reproductive History - recycling or rubbish collector: /Reproductive Hx- recycling or rubbish collector Hx Now Gestational Age (in weeks): EDC: Hx Hx Para Hx Section SAB Does the father of the baby or his family experience fever w Father of the baby Malignant Hypertension history comment PFSH Medical History Wears glasses Arthritis Pulmonary embolism DVT (deep venous thrombosis) Non-smoker Sleep apnea Chronic cough History of edema Cardiology follow-up encounter History of atrial fibrillation Cholecystectomy planned H/O deep venous thrombosis Home Medications Medication Instructions Recorded Last Taken Type albuterol sulfate 90 mcg/actuation 2 puff inhalation Q6H PRN 01/10/21 09/03/22 Rx aerosol inhaler shortness of breath or wheezing #8.5 grams apixaban 5 mg tablet (Eliquis) 5 mg PO BID #60 tabs 01/10/21 08/27/22 Rx ascorbic acid (vitamin C) 500 mg 500 mg PO DAILY 08/28/22 09/03/22 History tablet (Vitamin C) fluticasone propionate 50 2 spray intranasal DAILY PRN nasal 08/28/22 09/03/22 History mcg/actuation nasal congestion spray,suspension vitamin E 200 unit tablet 400 unit PO DAILY 08/28/22 09/03/22 History cholecalciferol (vitamin D3) 50 2,000 unit PO DAILY 03/31/25 Unknown History mcg (2,000 unit) tablet (D3 DOTS) omega 3 350 mg-dha 235 mg-epa 90 1 cap PO DAILY 03/31/25 Unknown History mg-fish oil 597 mg capsule,delay rel ([place]-3) Allergy/AdvReac Type Severity Reaction Status Date / Time barium iodide AdvReac Nausea/Vom/ Verified 03/31/25 11:02 Diarrhea Family History (Updated 01/08/21 @ 14:[address] Graciela Juarez MD) Mother Diabetes Father Heart disease Surgical History (Updated 03/31/25 @ 11:15 by Sam Jara) History of cholecystectomy Hx of rotator cuff surgery Hx of surgical procedure H/O hernia repair History of appendectomy H/O total knee replacement Social History (Updated 01/08/21 @ 14:[address] Graciela Juarez MD) household members: spouse Smoking Status: Never smoker alcohol intake: current alcohol intake frequency: holidays/special occasions only substance use type: does not use Audit: Pertinent Findings HISTORY of Pertinent Findings History of Pertinent Findings: History of Afib around covid time. Does not seem to have recurred. Pertinent Findings EKG Perinent findings: 09/2022: SR with 1st degree AV block Recommendation Anesthesia Recommendation Anesthesia recommendation: OPTIMIZED for anesthesia (EKG on DOS to follow up on hx of afib)
[2025-04-06] VITALS (9 sets, daily range): BP systolic 126–146; BP diastolic 86–93; PULSE 63–66; RESP 12–16; TEMP 36.6–36.9; O2SAT 95–97; BMI 34.0
[2025-04-06] MEDS: Lactated Ringers 1,000 ML 15 ML IV (08:20)
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
[2025-04-06] MEDS: Lidocaine 1% (5 ml sdv) 5 ML Vial IV (09:57)
--- NOTE | 2025-04-06 10:05 | PCM.OPRPT ---
Operative Report (Standard) Operative Information Date of Procedure: 04/06/25 Pre-Operative Diagnosis: Right chronic serous otitis media Post-Operative Diagnosis: same Surgery/Procedure Performed: Right myringotomy with T tube ditto machine operator: No Type of Anesthesia: General RN Documented Start/Stop Times: Operation Date: 04/06/25 10:00 Case Time Into Pre-Op 04/06/25 07:52 Anesthesia Start 04/06/25 09:53 Into Room 04/06/25 09:53 Procedure Start 04/06/25 10:01 Procedure End 04/06/25 10:04 Procedure Start Time: 10: Procedure Stop Time: 10:04 Select all DRAINS/GRAFTS/IMPLANTS that apply: None Estimated Blood Loss: none Specimen collected: No Description of surgery: The patient was taken to the operating room on 04/06/25. The patient was placed in the supine position on the operating room table. The patient was given sufficient general anesthesia. The operating microscope was used throughout the entire case. A speculum was inserted into the patient's right ear. Cerumen was removed using a curette. An incision was placed in the anterior inferior quadrant of the tympanic membrane. Fluid was suctioned from the middle ear space with a 5 suction. A T tube was placed without difficulty. Antibiotic drops were instilled into the patient's ear. The patient was then awoken. They were brought to the recovery room in stable condition. Blood loss none, replacement none. Sponge, needle and instrument counts correct at the end of the procedure. Surgical Findings: fluid right middle ear Complications Complications: No
--- NOTE | 2025-04-06 10:07 | PCM.DC.SUM ---
Providers Primary Care Physician: Dr. Justin Diaz DO Reason For Visit: Right Myringotomy with T tube Medications at Discharge Home Medications albuterol sulfate 90 mcg/actuation aerosol inhaler 2 puff inhalation Q6H PRN shortness of breath or wheezing #8.5 grams 01/10/21 apixaban 5 mg tablet (Eliquis) 5 mg PO BID #60 tabs 01/10/21 ascorbic acid (vitamin C) 500 mg tablet (Vitamin C) 500 mg PO DAILY 08/28/22 fluticasone propionate 50 mcg/actuation nasal spray,suspension 2 spray intranasal DAILY PRN nasal congestion 08/28/22 vitamin E 200 unit tablet 400 unit PO DAILY 08/28/22 cholecalciferol (vitamin D3) 50 mcg (2,000 unit) tablet (D3 DOTS) 2,000 unit PO DAILY 03/31/25 omega 3 350 mg-dha 235 mg-epa 90 mg-fish oil 597 mg capsule,delay rel ([place]-3) 1 cap PO DAILY 03/31/25 Weight / BMI Weight Weight: 120.4 kg Body Mass Index (BMI) 34.0 D/C Instructions Discharge Activity: Return to Normal Activity Additional Activity Instructions: Ear drops....5 drops right ear twice a day for 2 days (3 doses) DC O2, CPAP, BIPAP Needs Home O2 Discharge instructions: No Please Follow Up With: Duke Lepe MD When: 3 weeks Meaningful Use Info Meaningful Use Meaningful Use Diagnoses (Choose all that apply): None applicable Discharge Plan Admission Attending Provider: Duke Lepe Primary Care Provider: Justin Diaz Instructions Print Language: Irish Discharge Orders/Prescriptions Prescriptions: No Action Eliquis 5 mg tablet 5 mg PO BID Qty: 60 0RF albuterol sulfate 90 mcg/actuation HFA aerosol inhaler 2 puff inhalation Q6H PRN (Reason: shortness of breath or wheezing) Qty: 8.5 0RF ascorbic acid (vitamin C) [Vitamin C] 500 mg Tablet 500 mg PO DAILY fluticasone propionate 50 mcg/actuation spray,suspension 2 spray INTRANASAL DAILY PRN (Reason: nasal congestion) Patient Comments: SPRAY 2 SPRAYS INTRANASALLY ONCE A DAY vitamin E 200 unit Tablet 400 unit PO DAILY [place]-3 350 mg-235 mg- 90 mg-597 mg capsule,delayed release(DR/EC) 1 cap PO DAILY cholecalciferol (vitamin D3) [D3 DOTS] 50 mcg (2,000 unit) tablet 2,000 unit PO DAILY Referrals / Follow Up: Justin Diaz DO [Primary Care Provider, Family Practice] Disposition Disposition (needs filled in before D/C Order can be placed): Home, Self Care
[2025-04-06] MEDS: Ciprofloxacin 0.3% 2.5ml Bottle 1 DRP (10:09)
--- NOTE | 2025-04-06 10:23 | PCM.POST.ANE ---
Anesthesia: Postop Eval I Current Vital Signs Temperature: 98 F Pulse Rate: 66 Blood Pressure: 133/91 Respiratory Rate: 14 Pulse Ox: 97 Oxygen Delivery Method: Room Air Assessment Airway patent: Yes Spontaneous unlabored respirations: Yes Mental status: Awake and Calm nausea: No Vomiting: No Anesthesia Complication: No Fluid Hydration Crystalloid volume administer (ml): 400 Total IV fluid infused: 400 Progress Note Anesthesia document: Postop Eval 1 completed: Yes
--- NOTE | 2025-04-06 12:23 | POSTOPAN2_ITS ---
Anesthesia Postop Eval I Sum Postop Eval Completion status Anesthesia document: Postop Eval 1 completed: Yes Anesthesia Postop Eval I Summary Anesthesia Postop Eval I Summary: Anesthesia Postop Eval I: Assessment Summary Airway patent Yes 04/06/25 10:24 HEALTH PROFESSIONAL.[email or web address] Spontaneous unlabored Yes 04/06/25 10:24 HEALTH PROFESSIONAL.JBLOU respirations Mental status Awake,Calm 04/06/25 10:24 HEALTH PROFESSIONAL.JBLOU nausea No 04/06/25 10:24 HEALTH PROFESSIONAL.JBLOU Vomiting No 04/06/25 10:24 HEALTH PROFESSIONAL.JBLOU Anesthesia Postop Eval I: Fluid Summary Crystalloid volume administer 400 04/06/25 10:24 HEALTH PROFESSIONAL.JBLOU (ml) Colloids volume administered ( ml) Blood Product volume administered (ml) Total IV fluid infused 400 04/06/25 10:24 HEALTH PROFESSIONAL.JBLOU Anesthesia Postop Eval I: Summary Notes Anesthesia Complication No 04/06/25 10:24 HEALTH PROFESSIONAL.JBLOU Anesthesia Complication Comment: Post-operative progress note Anesthesia: Postop Eval II Evaluation Mental status: Awake and Calm Pain Level: 1 nausea: No Vomiting: No Complications Anesthesia Complication: No
--- NOTE | 2025-04-06 12:23 | PCM.POSTANE2 ---
Anesthesia Postop Eval I Sum Postop Eval Completion status Anesthesia document: Postop Eval 1 completed: Yes Anesthesia Postop Eval I Summary Anesthesia Postop Eval I Summary: Anesthesia Postop Eval I: Assessment Summary Airway patent Yes 04/06/25 10:24 SPRING REPAIRER HELPER HAND.[email or web address] Spontaneous unlabored Yes 04/06/25 10:24 SPRING REPAIRER HELPER HAND.JBLOU respirations Mental status Awake,Calm 04/06/25 10:24 SPRING REPAIRER HELPER HAND.JBLOU nausea No 04/06/25 10:24 SPRING REPAIRER HELPER HAND.JBLOU Vomiting No 04/06/25 10:24 SPRING REPAIRER HELPER HAND.JBLOU Anesthesia Postop Eval I: Fluid Summary Crystalloid volume administer 400 04/06/25 10:24 SPRING REPAIRER HELPER HAND.JBLOU (ml) Colloids volume administered ( ml) Blood Product volume administered (ml) Total IV fluid infused 400 04/06/25 10:24 SPRING REPAIRER HELPER HAND.JBLOU Anesthesia Postop Eval I: Summary Notes Anesthesia Complication No 04/06/25 10:24 SPRING REPAIRER HELPER HAND.JBLOU Anesthesia Complication Comment: Post-operative progress note Anesthesia: Postop Eval II Evaluation Mental status: Awake and Calm Pain Level: 1 nausea: No Vomiting: No Complications Anesthesia Complication: No
== END 2025-04-06 11:18 | disposition home or self-care (01) ==
LOC: SDC 07:49 → AC 07:51
PROVIDERS: PCP Student in an Organized Health Care Education/Training Program; Referring Provider Otolaryngology; Visit Provider Otolaryngology
PROC: (CPT 69421; principal; 2025-04-06 09:55)
DX: H65.21 Chronic serous otitis media, right ear (principal)
CPT/HCPCS: 69421; 93005; J2405